=== PATIENT | male | born 1995 | race Caucasian/White ===

== ENCOUNTER 2022-11-30 01:13 | Emergency (ER) | payer OTHER, SELFPAY ==
[2022-11-30 01:17] VITALS: BP 143/78; PULSE 79; RESP 18; TEMP 36.3; O2SAT 100
[2022-11-30 03:08] VITALS: PULSE 57; RESP 17; O2SAT 97
--- NOTE | 2022-11-30 03:52 | PC.NURSE ---
Pt states he has to go to work in the morning and would like to leave. Pt educated on risks to leaving before seeing provider and benefits of staying, verbalized understanding. Pt is A&Ox4 and ambulated out of ED with steady gait, accompanied by family.
== END 2022-11-30 04:01 | disposition left against medical advice (07) ==
PROVIDERS: Emergency Provider Emergency Medicine
DX: R20.2 Paresthesia of skin (principal)
CPT/HCPCS: 99199